=== PATIENT | male | born 1950 | race Hispanic/Latino ===

== ENCOUNTER 2016-05-30 16:28 | Inpatient (IN) | payer BC, MEDICARE ==
[2016-05-30 19:03] LABS: Urine Drugs of Abuse Note Disclamer
[2016-05-30 19:42] LABS: Bilirubin,Urine NEG (Negative); Blood,Urine MOD (Negative); Ketones,Urine NEG (Negative); Leukocyte Esterase,Urine NEG (Negative); Mucus,Urine 2+ /HPF; Nitrite,Urine NEG (Negative)
--- NOTE | 2016-05-30 19:48 | Emergency Department Report ---
ED Altered Mental Status HPI - General Chief Complaint: Headache Stated Complaint: ALTERED MENTAL STATUS Time Seen by Provider: 05/30/16 17:44 Source: patient, old records reviewed (no previous record) Mode of arrival: Stretcher Limitations: No Limitations - History of Present Illness Initial Comments: 65-year-old male with no past medical history presents to the hospital with altered mental status. Patient states he has been "sick times one week". By sickness patient means that he is having intermittent periods of confusion as per other people. 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 Apparently he was talking on the phone to another cdl flatbed truck driver about 1.5 hour prior to evaluation and he was not making sense. I spoke to this friend on the phone. Patient didn't know where he was and was incoherent at times. Patient does not recall this incident or conversation. Plans intermittent left-sided headache rated a 4/10 in intensity for last 2 weeks. No reports of nausea, vomiting, chest pain, shortness of breath, diarrhea, or abdominal pain. - Related Data Home Medications Medication Instructions Recorded Confirmed Last Taken No Known Home Medications [No 05/30/16 05/30/16 Unknown Reported Home Medications] Allergies Allergy/AdvReac Type Severity Reaction Status Date / Time No Known Allergies Allergy Unverified 05/30/16 17:31 ED Review of Systems ROS: Stated complaint: ALTERED MENTAL STATUS Other details as noted in HPI Comment: All other systems reviewed and negative Other: Constitutional: No fevers chills Eyes: No eye pain visual changes ENT: No ear pain or throat pain Neck: Denies pain Respiratory: Denies cough wheezing shortness of breath Cardiovascular: Denies chest pain, palpitations, syncope GI: Denies abdominal pain, nausea, vomiting, diarrhea : Denies dysuria, urinary frequency, or urgency Musculoskeletal: Denies back pain Skin: Denies rash, lesions, erythema Neurologic: Denies numbness, weakness Psychiatric: Denies suicidal ideation, hallucinations ED Past Medical Hx - Past Medical History Previous Medical History?: No - Surgical History Past Surgical History?: Yes Additional Surgical History: KNEE AND KIDNEY SURGERY - Social History Smoking Status: Never Smoker Substance Use Type: None - Medications Home Medications: Home Medications Medication Instructions Recorded Confirmed Last Taken Type No Known Home Medications [No 05/30/16 05/30/16 Unknown History Reported Home Medications] ED Physical Exam - General Limitations: No Limitations - Other Other exam information: General: No limitations, patient is alert in no acute distress Head exam: Atraumatic, normocephalic Eyes exam: Normal appearance, pupils equal reactive to light, extraocular movements intact ENT: Moist mucous membrane, normal oropharynx Neck exam: Normal inspection, full range of motion, no meningismus nontender Respiratory exam: Clear to auscultation bilateral, no wheezes, rales, crackles Cardiovascular: Normal rate and rhythm, normal heart sounds Abdomen: Soft, nondistended, and nontender, with normal bowel sounds, no rebound, or guarding Extremity: Full range of motion normal inspection no deformity Back: Normal Inspection, full range of motion, no tenderness Neurologic: Alert, oriented x3, cranial nerves intact, no motor or sensory deficit, finger nose finger function in tact Psychiatric: normal affect, normal mood Skin: Warm, dry, intact ED Course Vital Signs 05/30/16 05/30/16 17:32 19:00 Temperature 99.5 F Pulse Rate 91 H 90 Respiratory 18 20 Rate Blood Pressure 160/54 Blood Pressure 116/65 [Left] O2 Sat by Pulse 96 100 Oximetry - Reevaluation(s) Reevaluation #1: 05/30/16 22:45 Patient remains stable during ED stay he received 1 L normal saline and by mouth potassium - Consultations Consultation #1: 05/30/16 21:[address] Magaña inspector canned food reconditioning neurologist for tele neurology. Recommends admission to the hospital for the workup and evaluation. After CT review states that the ventricles look large and there is some thickening of the falx. Differential includes sinus venous thrombosis and hydrocephalus. Recommend MRI with and without contrast and MRV. - Lab Data Result diagrams: 05/30/16 19:10 05/30/16 19:10 Lab Results 05/30/16 05/30/16 05/30/16 Range/Units 18:51 18:51 19:10 WBC 14.8 H (4.5-11.0) K/mm3 RBC 4.68 (3.65-5.03) M/mm3 Hgb 13.9 (11.8-15.2) gm/dl Hct 41.5 (35.5-45.6) % MCV 89 (84-94) fl MCH 30 (28-32) pg MCHC 34 (32-34) % RDW 13.5 (13.2-15.2) % Plt Count 270 (140-440) K/mm3 Lymph % (Auto) 7.7 L (13.4-35.0) % [place] % (Auto) 7.9 H (0.0-7.3) % Eos % (Auto) 0.0 (0.0-4.3) % Baso % (Auto) 0.5 (0.0-1.8) % Lymph # 1.1 L (1.2-5.4) K/mm3 [place] # 1.2 H (0.0-0.8) K/mm3 Eos # 0.0 (0.0-0.4) K/mm3 Baso # 0.1 (0.0-0.1) K/mm3 Seg Neutrophils % 83.9 H (40.0-70.0) % Seg Neutrophils # 12.4 H (1.8-7.7) K/mm3 Sodium (137-145) mmol/L Potassium (3.6-5.0) mmol/L Chloride (98-107) mmol/L Carbon Dioxide (22-30) mmol/L Anion Gap mmol/L BUN (9-20) mg/dL Creatinine (0.8-1.5) mg/dL Estimated GFR ml/min BUN/Creatinine Ratio % Glucose (75-100) mg/dL Calcium (8.4-10.2) mg/dL Magnesium (1.7-2.3) mg/dL Total Bilirubin (0.1-1.2) mg/dL AST (5-40) units/L ALT (7-56) units/L Alkaline Phosphatase (35-129) units/L Ammonia (25-60) umol/L Total Protein (6.3-8.2) g/dL Albumin (3.9-5) g/dL Albumin/Globulin Ratio % TSH (0.270-4.200) mlU/mL Free T4 (0.76-1.46) ng/dL Urine Color [place] (Yellow) Urine Turbidity Clear (Clear) Urine pH 5.0 (5.0-7.0) Ur Specific [place] 1.029 (1.003-1.030) Urine Protein 100 mg/dl (Negative) mg/dL Urine Glucose (UA) Neg (Negative) mg/dL Urine Ketones Neg (Negative) mg/dL Urine Blood Mod (Negative) Urine Nitrite Neg (Negative) Urine Bilirubin Neg (Negative) Urine Urobilinogen 4.0 (<2.0) mg/dL Ur Leukocyte Esterase Neg (Negative) Urine WBC (Auto) 4.0 (0.0-6.0) /HPF Urine RBC (Auto) 25.0 (0.0-6.0) /HPF Urine Mucus 2+ /HPF Urine Opiates Screen Presumptive negative Urine Methadone Screen Presumptive negative Ur Barbiturates Screen Presumptive negative Ur Phencyclidine Scrn Presumptive negative Ur Amphetamines Screen Presumptive negative U Benzodiazepines Scrn Presumptive negative Urine Cocaine Screen Presumptive negative U Marijuana (THC) Screen Presumptive negative Drugs of Abuse Note Disclamer Plasma/Serum Alcohol (0-0.07) gm% 05/30/16 05/30/16 05/30/16 Range/Units 19:10 19:10 19:10 WBC (4.5-11.0) K/mm3 RBC (3.65-5.03) M/mm3 Hgb (11.8-15.2) gm/dl Hct (35.5-45.6) % MCV (84-94) fl MCH (28-32) pg MCHC (32-34) % RDW (13.2-15.2) % Plt Count (140-440) K/mm3 Lymph % (Auto) (13.4-35.0) % [place] % (Auto) (0.0-7.3) % Eos % (Auto) (0.0-4.3) % Baso % (Auto) (0.0-1.8) % Lymph # (1.2-5.4) K/mm3 [place] # (0.0-0.8) K/mm3 Eos # (0.0-0.4) K/mm3 Baso # (0.0-0.1) K/mm3 Seg Neutrophils % (40.0-70.0) % Seg Neutrophils # (1.8-7.7) K/mm3 Sodium 133 L (137-145) mmol/L Potassium 3.4 L (3.6-5.0) mmol/L Chloride 94.3 L (98-107) mmol/L Carbon Dioxide 22 (22-30) mmol/L Anion Gap 20 mmol/L BUN 14 (9-20) mg/dL Creatinine 1.0 (0.8-1.5) mg/dL Estimated GFR > 60 ml/min BUN/Creatinine Ratio 14.00 % Glucose 131 H (75-100) mg/dL Calcium 8.3 L (8.4-10.2) mg/dL Magnesium (1.7-2.3) mg/dL Total Bilirubin 1.1 (0.1-1.2) mg/dL AST 49 H (5-40) units/L ALT 72 H (7-56) units/L Alkaline Phosphatase 138 H (35-129) units/L Ammonia (25-60) umol/L Total Protein 7.2 (6.3-8.2) g/dL Albumin 3.4 L (3.9-5) g/dL Albumin/Globulin Ratio 0.9 % TSH 0.621 (0.270-4.200) mlU/mL Free T4 0.87 (0.76-1.46) ng/dL Urine Color (Yellow) Urine Turbidity (Clear) Urine pH (5.0-7.0) Ur Specific [place] (1.003-1.030) Urine Protein (Negative) mg/dL Urine Glucose (UA) (Negative) mg/dL Urine Ketones (Negative) mg/dL Urine Blood (Negative) Urine Nitrite (Negative) Urine Bilirubin (Negative) Urine Urobilinogen (<2.0) mg/dL Ur Leukocyte Esterase (Negative) Urine WBC (Auto) (0.0-6.0) /HPF Urine RBC (Auto) (0.0-6.0) /HPF Urine Mucus /HPF Urine Opiates Screen Urine Methadone Screen Ur Barbiturates Screen Ur Phencyclidine Scrn Ur Amphetamines Screen U Benzodiazepines Scrn Urine Cocaine Screen U Marijuana (THC) Screen Drugs of Abuse Note Plasma/Serum Alcohol < 0.01 (0-0.07) gm% 05/30/16 05/30/16 Range/Units 19:10 20:27 WBC (4.5-11.0) K/mm3 RBC (3.65-5.03) M/mm3 Hgb (11.8-15.2) gm/dl Hct (35.5-45.6) % MCV (84-94) fl MCH (28-32) pg MCHC (32-34) % RDW (13.2-15.2) % Plt Count (140-440) K/mm3 Lymph % (Auto) (13.4-35.0) % [place] % (Auto) (0.0-7.3) % Eos % (Auto) (0.0-4.3) % Baso % (Auto) (0.0-1.8) % Lymph # (1.2-5.4) K/mm3 [place] # (0.0-0.8) K/mm3 Eos # (0.0-0.4) K/mm3 Baso # (0.0-0.1) K/mm3 Seg Neutrophils % (40.0-70.0) % Seg Neutrophils # (1.8-7.7) K/mm3 Sodium (137-145) mmol/L Potassium (3.6-5.0) mmol/L Chloride (98-107) mmol/L Carbon Dioxide (22-30) mmol/L Anion Gap mmol/L BUN (9-20) mg/dL Creatinine (0.8-1.5) mg/dL Estimated GFR ml/min BUN/Creatinine Ratio % Glucose (75-100) mg/dL Calcium (8.4-10.2) mg/dL Magnesium 2.1 (1.7-2.3) mg/dL Total Bilirubin (0.1-1.2) mg/dL AST (5-40) units/L ALT (7-56) units/L Alkaline Phosphatase (35-129) units/L Ammonia 59.0 (25-60) umol/L Total Protein (6.3-8.2) g/dL Albumin (3.9-5) g/dL Albumin/Globulin Ratio % TSH (0.270-4.200) mlU/mL Free T4 (0.76-1.46) ng/dL Urine Color (Yellow) Urine Turbidity (Clear) Urine pH (5.0-7.0) Ur Specific [place] (1.003-1.030) Urine Protein (Negative) mg/dL Urine Glucose (UA) (Negative) mg/dL Urine Ketones (Negative) mg/dL Urine Blood (Negative) Urine Nitrite (Negative) Urine Bilirubin (Negative) Urine Urobilinogen (<2.0) mg/dL Ur Leukocyte Esterase (Negative) Urine WBC (Auto) (0.0-6.0) /HPF Urine RBC (Auto) (0.0-6.0) /HPF Urine Mucus /HPF Urine Opiates Screen Urine Methadone Screen Ur Barbiturates Screen Ur Phencyclidine Scrn Ur Amphetamines Screen U Benzodiazepines Scrn Urine Cocaine Screen U Marijuana (THC) Screen Drugs of Abuse Note Plasma/Serum Alcohol (0-0.07) gm% - EKG Data -: EKG Interpreted by Me (nsr 90, fusion complexes, inf infarct) When compared to previous EKG there are: previous EKG unavailable - Radiology Data Radiology results: report reviewed (CT head: No acute finding) - Medical Decision Making Plan to admit patient to hospital for further workup and evaluation of change in mental status. - Differential Diagnosis dementia, delerium, cva, tia, encephalopathy Critical Care Time: No Critical care attestation.: If time is entered above; I have spent that time in minutes in the direct care of this critically ill patient, excluding procedure time. ED Disposition Clinical Impression: Altered mental status, Hyponatremia, Hypokalemia, Hematuria Disposition: OP ADMITTED IP TO THIS HOSP Is pt being admited?: Yes Condition: Stable Time of Disposition: 21:31 (Dr Fernandes/hosp)
[2016-05-30 19:53] LABS: Alanine Aminotransferase 72 units/L (7-56); Albumin 3.4 g/dL (3.9-5); Albumin/Globulin Ratio 0.9 %; Alkaline Phosphatase 138 units/L (35-129); Anion Gap 20 mmol/L; Bilirubin,Total 1.1 mg/dL (0.1-1.2); Blood Urea Nitrogen 14 mg/dL (9-20); Calcium 8.3 mg/dL (8.4-10.2); Carbon Dioxide 22 mmol/L (22-30); Chloride 94.3 mmol/L (98-107); Glucose 131 mg/dL (75-100); Potassium 3.4 mmol/L (3.6-5.0); Sodium 133 mmol/L (137-145); Total Protein 7.2 g/dL (6.3-8.2)
[2016-05-30 20:06] LABS: Basophils % (Auto) 0.5 % (0.0-1.8); Hematocrit 41.5 % (35.5-45.6); Hemoglobin 13.9 gm/dl (11.8-15.2); Mean Corpuscular HGB Conc 34 % (32-34); Mean Corpuscular Hemoglobin 30 pg (28-32); Mean Corpuscular Volume 89 fl (84-94); Platelet Count 270 K/mm3 (140-440); Red Blood Count 4.68 M/mm3 (3.65-5.03); Red Cell Distribution Width 13.5 % (13.2-15.2); White Blood Count 14.8 K/mm3 (4.5-11.0)
--- NOTE | 2016-05-30 20:14 | Cat Scan Report ---
FINAL REPORT PROCEDURE: CT HEAD/BRAIN WO CON TECHNIQUE: Computerized tomography of the head was performed without contrast material. HISTORY: Altered Mental Status COMPARISON: No prior studies are available for comparison. FINDINGS: No CT evidence of intracranial mass, hemorrhage, acute territorial infarction, or hydrocephalus. The intracranial arteries are symmetric in density. Calvarium is intact. There is a trace amount of fluid in the left sphenoid sinus. Mastoids are aerated. IMPRESSION: No CT evidence of acute intracranial abnormality
[2016-05-30] MEDS ORDERED: K-DUR PO ONE (20:27)
[2016-05-30] MEDS ORDERED: NACL 0.9% 1000 ML 1,000 ML IV ONE (20:27)
--- NOTE | 2016-05-31 00:51 | History and Physical Report ---
History of Present Illness Date of examination: 05/31/16 Date of admission: 05/31/16 Chief complaint: Altered mental status History of present illness: This is a 65-year-old male with no past medical history presents to the hospital with altered mental status. 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 Apparently he was talking on the phone to his friend (another bobbin trucker) prior to evaluation and he was not making sense for his friend. The friend called the EMS and patient was brought to the ER. Patient didn't know where he was and was incoherent at times. Patient does not recall this incident or conversation with his friend. Plans intermittent left-sided headache rated a 4/10 in intensity for last 2 weeks. No reports of nausea, vomiting, chest pain, shortness of breath, diarrhea, or abdominal pain. Neurology recommended to admit this patient for possible stroke versus seizure workup. His UDS was negative and serum alcohol level was normal. 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 Family History: Unknown Review of System: Constitutional: no fever, no chills, no weight loss Ears, eyes, nose, mouth and throat: no nasal congestion, no nasal discharge, no sinus pressure, no vision change, no red eye. Neck: No neck pain or rigidity. Cardiovascular: No chest pain, no orthopnea, no palpitations, no leg swelling Respiratory: No shortness of breath, no cough, no congestion, no wheezing Gastrointestinal: no abdominal pain, no nausea, no vomiting Genitourinary : no dysuria, no hematuria Musculoskeletal: no joint swelling or muscle ache Integumentary: no rash, no pruritis Neurological: no parathesias, no numbness, no tingling Endocrine: no cold or heat intolerance, no polyuria or polydipsia Hematologic/Lymphatic: no easy bruising, no easy bleeding, no gland swelling Allergic/Immunologic: no urticaria, no angioedema. Medications and Allergies Allergies Allergy/AdvReac Type Severity Reaction Status Date / Time No Known Allergies Allergy Unverified 05/30/16 17:31 Home Medications Medication Instructions Recorded Confirmed Last Taken Type No Known Home Medications [No 05/30/16 05/30/16 Unknown History Reported Home Medications] Exam - Physical Exam Narrative exam: GENERAL: This is well-developed well-nourished white male lying on bed appeared to be in no discomfort. HEENT: Normocephalic. Atraumatic. Extraocular motions are intact. No conjunctival congestion or icterus. Patient has moist mucous membranes. External auditory canal and nares patent bilaterally. NECK: Supple. Trachea midline. No JVD, thyromagaly or lymphadenopathy. CHEST/LUNGS: Clear to auscultated bilaterally. There is no respiratory distress noted, breathing nonlabored. No wheezes crackles or rhonchi. HEART/CARDIOVASCULAR: Regular in rate and rhythm. PMI at the apex. There is no gallop rub or murmur. ABDOMEN: Abdomen is soft, nontender. Patient has normal bowel sounds. There is no abdominal distention. No organomagaly or rigidity. SKIN: There is no rash, no erythrema. There is no diaphoresis. Warm and dry. NEUROLOGY: The patient is awake, alert, and oriented to person and place only. The patient is cooperative. The patient has normal speech. No focal motor deficit. MUSCULOSKELETAL: No joint effusion or tenderness. Muscle strength equal bilaterally. No muscle wasting. EXTRIMITY: No edema, cyanosis or clubbing. PSYCH: No depression or anxiety noted. Cooperative. - Constitutional Vitals: Temp Pulse Resp BP Pulse Ox 99.5 F 90 20 116/65 100 05/30/16 17:32 05/30/16 19:00 05/30/16 19:00 05/30/16 19:00 05/30/16 19:00 Results - Labs CBC & Chem 7: 05/30/16 19:10 05/30/16 19:10 Labs: Laboratory Last Values WBC 14.8 K/mm3 (4.5-11.0) H 05/30/16 19:10 RBC 4.68 M/mm3 (3.65-5.03) 05/30/16 19:10 Hgb 13.9 gm/dl (11.8-15.2) 05/30/16 19:10 Hct 41.5 % (35.5-45.6) 05/30/16 19:10 MCV 89 fl (84-94) 05/30/16 19:10 MCH 30 pg (28-32) 05/30/16 19:10 MCHC 34 % (32-34) 05/30/16 19:10 RDW 13.5 % (13.2-15.2) 05/30/16 19:10 Plt Count 270 K/mm3 (140-440) 05/30/16 19:10 Lymph % (Auto) 7.7 % (13.4-35.0) L 05/30/16 19:10 [place] % (Auto) 7.9 % (0.0-7.3) H 05/30/16 19:10 Eos % (Auto) 0.0 % (0.0-4.3) 05/30/16 19:10 Baso % (Auto) 0.5 % (0.0-1.8) 05/30/16 19:10 Lymph # 1.1 K/mm3 (1.2-5.4) L 05/30/16 19:10 [place] # 1.2 K/mm3 (0.0-0.8) H 05/30/16 19:10 Eos # 0.0 K/mm3 (0.0-0.4) 05/30/16 19:10 Baso # 0.1 K/mm3 (0.0-0.1) 05/30/16 19:10 Seg Neutrophils % 83.9 % (40.0-70.0) H 05/30/16 19:10 Seg Neutrophils # 12.4 K/mm3 (1.8-7.7) H 05/30/16 19:10 Sodium 133 mmol/L (137-145) L 05/30/16 19:10 Potassium 3.4 mmol/L (3.6-5.0) L 05/30/16 19:10 Chloride 94.3 mmol/L (98-107) L 05/30/16 19:10 Carbon Dioxide 22 mmol/L (22-30) 05/30/16 19:10 Anion Gap 20 mmol/L 05/30/16 19:10 BUN 14 mg/dL (9-20) 05/30/16 19:10 Creatinine 1.0 mg/dL (0.8-1.5) 05/30/16 19:10 Estimated GFR > 60 ml/min 05/30/16 19:10 BUN/Creatinine Ratio 14.00 % 05/30/16 19:10 Glucose 131 mg/dL (75-100) H 05/30/16 19:10 Calcium 8.3 mg/dL (8.4-10.2) L 05/30/16 19:10 Magnesium 2.1 mg/dL (1.7-2.3) 05/30/16 19:10 Total Bilirubin 1.1 mg/dL (0.1-1.2) 05/30/16 19:10 AST 49 units/L (5-40) H 05/30/16 19:10 ALT 72 units/L (7-56) H 05/30/16 19:10 Alkaline Phosphatase 138 units/L (35-129) H 05/30/16 19:10 Ammonia 59.0 umol/L (25-60) 05/30/16 20:27 Total Protein 7.2 g/dL (6.3-8.2) 05/30/16 19:10 Albumin 3.4 g/dL (3.9-5) L 05/30/16 19:10 Albumin/Globulin Ratio 0.9 % 05/30/16 19:10 TSH 0.621 mlU/mL (0.270-4.200) 05/30/16 19:10 Free T4 0.87 ng/dL (0.76-1.46) 05/30/16 19:10 Urine Color [place] (Yellow) 05/30/16 18:51 Urine Turbidity Clear (Clear) 05/30/16 18:51 Urine pH 5.0 (5.0-7.0) 05/30/16 18:51 Ur Specific [place] 1.029 (1.003-1.030) 05/30/16 18:51 Urine Protein 100 mg/dl mg/dL (Negative) 05/30/16 18:51 Urine Glucose (UA) Neg mg/dL (Negative) 05/30/16 18:51 Urine Ketones Neg mg/dL (Negative) 05/30/16 18:51 Urine Blood Mod (Negative) 05/30/16 18:51 Urine Nitrite Neg (Negative) 05/30/16 18:51 Urine Bilirubin Neg (Negative) 05/30/16 18:51 Urine Urobilinogen 4.0 mg/dL (<2.0) 05/30/16 18:51 Ur Leukocyte Esterase Neg (Negative) 05/30/16 18:51 Urine WBC (Auto) 4.0 /HPF (0.0-6.0) 05/30/16 18:51 Urine RBC (Auto) 25.0 /HPF (0.0-6.0) 05/30/16 18:51 Urine Mucus 2+ /HPF 05/30/16 18:51 Urine Opiates Screen Presumptive negative 05/30/16 18:51 Urine Methadone Screen Presumptive negative 05/30/16 18:51 Ur Barbiturates Screen Presumptive negative 05/30/16 18:51 Ur Phencyclidine Scrn Presumptive negative 05/30/16 18:51 Ur Amphetamines Screen Presumptive negative 05/30/16 18:51 U Benzodiazepines Scrn Presumptive negative 05/30/16 18:51 Urine Cocaine Screen Presumptive negative 05/30/16 18:51 U Marijuana (THC) Screen Presumptive negative 05/30/16 18:51 Drugs of Abuse Note Disclamer 05/30/16 18:51 Plasma/Serum Alcohol < 0.01 gm% (0-0.07) 05/30/16 19:10 - Imaging and Cardiology CT scan - chest: report reviewed (no acute intracranial abnormality) Assessment and Plan Assessment and plan: Acute encephalopathy, unknown etiology Mild hyponatremia Mild hypokalemia Leukocytosis, likely stress induced rule out underlying infection Elevated LFTs Plan: Admit to medicine obtain MRI, MRA and MRV, EEG par neurology recommendation Place on aspirin and statin Obtained blood culture, chest x-ray place on empiric antibiotic for now, DC antibiotic if cultures negative GI and DVT prophylaxis Monitor hepatic function, get hepatitis panel Also obtain B12 level Serum TSH and T4 level normal Advance Directives: Yes VTE prophylaxis?: Chemical Plan of care discussed with patient/family: Yes
[2016-05-31] MEDS ORDERED: D50W (25GM) IV PRN (01:12)
[2016-05-31] MEDS ORDERED: ZOFRAN IV PRN (01:12)
[2016-05-31] MEDS ORDERED: MILK OF MAGNESIA PO PRN (01:12)
[2016-05-31] MEDS ORDERED: PHENERGAN PR PRN (01:12)
[2016-05-31] MEDS ORDERED: TYLENOL PO PRN (01:12)
[2016-05-31] MEDS ORDERED: DULCOLAX PR PRN (01:12)
[2016-05-31] MEDS ORDERED: NORCO 5/325 PO PRN (01:12)
[2016-05-31] MEDS ORDERED: AMBIEN PO PRN (01:12)
[2016-05-31] MEDS ORDERED: REGLAN PO PRN (01:12)
[2016-05-31] MEDS ORDERED: SODIUM CHLORIDE FLUSH SYRINGE 10 ML IV PRN (01:12)
[2016-05-31] MEDS ORDERED: NACL 0.9% 1000 ML 1,000 ML IV SCH (02:00)
--- NOTE | 2016-05-31 10:00 | XRay Report ---
AP CHEST :05/31/16 CLINICAL: Aspiration. COMPARISON:None. FINDINGS: A partial consolidation of the right upper lobe. The lungs are otherwise clear . Normal heart. Mild central vascular congestion. No tubes or lines. IMPRESSION: Right upper lobe pneumonia with partial consolidation.
[2016-05-31] MEDS: COLACE PO SCH ×2 (10:09→22:37)
[2016-05-31] MEDS: PEPCID PO SCH ×2 (10:09→22:38)
[2016-05-31] MEDS: ASPIRIN PO SCH (10:09)
[2016-05-31] MEDS: LEVAQUIN PO SCH (10:09)
[2016-05-31] MEDS: LOVENOX SUB-Q SCH (10:09)
--- NOTE | 2016-05-31 10:50 | Event Note ---
Date: 05/31/16 Patient seen and examined. This is a follow-up of an admission earlier this morning. Continue plan as outlined in H&P.
--- NOTE | 2016-05-31 11:17 | Magnetic Resonance Report ---
MRI BRAIN WITHOUT CONTRAST: 05/31/16 01:12:00 CLINICAL: Stroke. TECHNIQUE: Axial diffusion, T1, T2, FLAIR, gradient echo T2*, and sagittal T1 sequences on a 1.5 Aarti magnet. FINDINGS: The vessels and sulci are slightly prominent for age.. No restricted diffusion. A few scattered bilateral subcortical white matter focal hyperintensities on FLAIR and T2. No mass or mass effect. No hemorrhage, edema or extra-axial collection. Normal pituitary and optic chiasm. The brainstem and cerebellum are normal. Intact vascular flow voids. Normal sinuses. The orbits, and soft tissues are normal. Normal calvarium and skull base. IMPRESSION: No evidence of acute/subacute infarct or hemorrhage. Mild cortical atrophy and mild nonspecific white matter hyperintensities.
--- NOTE | 2016-05-31 11:18 | Magnetic Resonance Report ---
MRA HEAD WITHOUT CONTRAST: 05/31/16 01:12:00 CLINICAL: Stroke. TECHNIQUE: Axial 3-D [id number] MR angiography of the [place] of [place] with review of axial source images. FINDINGS: Intact [place] of [place] with no aneurysm, stenosis or occlusion. Symmetric blood flow in the anterior, middle and posterior cerebral arteries. Normal basilar and vertebral arteries. IMPRESSION: Normal study.
[2016-05-31] MEDS ORDERED: FLUARIX QUAD 2016-2017(36 MOS+) IM ONE (12:00)
[2016-05-31] MEDS ORDERED: PNEUMOVAX 23 IM ONE (12:00)
--- NOTE | 2016-06-01 01:14 | Admit Criteria Form ---
Admission Criteria Documentation: NEUROLOGY GRG Clinical Indications for Admission to Inpatient Care (Place ' X' for any and all applicable criteria): Hospital admission is needed for appropriate care of the patient because of ANY ONE of the following: [ X]I. New-onset or worsening altered mental status remaining after emergency or observation level care (as appropriate) (9)(10)(11) [ ]II. Severe [employer] infections or inflammatory conditions, including ANY ONE of the following(1)(2)(3): [ ]a) Intracranial abscess [ ]b) Spinal abscess or myelitis [ ]c) Tuberculous or other nonbacterial, nonviral [employer] infection(8) [ ]III. Encephalitis(1)(2)(3) [ ]IV. Status epilepticus or repetitive seizures not controlled with emergent treatment [A] (7)(8) [ ]V. Transient alteration in consciousness with high-risk etiology; examples include (12)(13): [ ]a) Cardiovascular source [ ]b) Cataplexy [ ]. Cerebral aneurysm requiring ANY ONE of the following(14): [ ]a) IV antihypertensives or vasoactive agents [ ]b) Sedation and analgesia for suspected leak [ ]c) Need for external ventricular drainage and cerebral perfusion pressure monitoring [ ]d) Emergent evaluation to determine need for surgical clipping or endovascular coiling by interventional radiology. If surgery is required ( Also use Craniotomy, Supratentorial, for Surgery of Bleeding Intracranial Aneurysm (for bleeding aneurysm) or Craniotomy, Supratentorial (for nonbleeding aneurysm) as appropriate. [ ]VII. Altered mental status that is severe or persistent(16) [ ]VIII New-onset severe neurologic findings requiring inpatient care; examples include: [ ]a) Papilledema [ ]b) Cerebral edema [ ]c) Mass effect on imaging [ ]IX. New-onset severe neurologic symptom requiring inpatient care indicated by ANY ONE of the following: [ ]a) Aphasia(15) [ ]b) Weakness (grade 3 or less) [ ]c) Paralysis (eg, hemiplegia) [ ]d) Spasticity(16) [ ]e) Ataxia(17) [ ]f) Amnesia(18) [ ]g) Involuntary movements(19) [ ]h) Vertigo [ ]i) Other severe neurologic symptom not treatable at alternative level of care (eg, observation care) [ ]X. Guillain-[place] syndrome(20) [ ]XI. Myasthenia gravis crisis or inpatient monitoring need as indicated by ANY ONE of the following(21): [ ]a) Inadequate airway protection [ ]b) Respiratory insufficiency requiring intubation or inpatient. monitoring [ ]c) Progressive dysphagia with failure to thrive [ ]d) Intensive treatment (eg, course of plasmapheresis) with inadequate outpatient situation to monitor patients status [ ]XII. Multiple sclerosis or other acute demyelinating disease requiring inpatient care as indicated by ANY ONE of the following (22)(23): [ ]a) Acute severe deterioration requiring inpatient treatment (eg, IV steroids, plasmapheresis, close observation) [ ]b) Acute complication requiring inpatient care (eg, sepsis, severe decubitus, aspiration) [ ]XIII. Intracranial hypertension (eg, pseudotumor cerebri) requiring inpatient care (eg, acute visual loss, inadequate oral intake) (24) [ ]XIV.Parkinson disease requiring inpatient care (Also use Optimal Recovery Care Criteria or General Recovery Criteria as appropriate) indicated by ANY ONE of the following(25): [ ]a) Infection (eg, aspiration pneumonia) not treatable at alternative level of care [ ]b) Volume depletion not responsive to emergency and observation care treatment (as appropriate) [ ]c) Life-threatening agitation or psychotic behavior not treatable on emergency, observation care, or alternative level (eg, residential) basis [ ]d) Severe medication withdrawal effects (eg, freezing, neuroleptic malignant syndrome) not responsive to emergency and observation care treatment (as appropriate) [ ]e) Other severe manifestation not treatable at alternative level of care [ ]XV.Amyotrophic lateral sclerosis with inpatient care needs as indicated by ANY ONE of the following(26): [ ]a) Acute complications requiring inpatient care (Use Optimal Recovery Care Criteria or General Recovery Criteria as appropriate); examples include: [ ]i) Aspiration pneumonia [ ]ii) Sepsis [ ]b) Dehydration or hypovolemia (not responsive to emergency and observation care treatment as appropriate) AND artificial support desired [ ]c) Inadequate airway protection AND artificial support desired [ ]d) Severe ventilatory insufficiency AND artificial support desired [ ]XVI.Severe myopathy, neuropathy, or other neuromuscular disease as indicated by ANY ONE of the following: [ ]a) New-onset severe diffuse weakness (eg, strength 3/5 or less) [ ]b) Severe dysphagia [ ]c) Dyspnea at rest or with minimal exertion (new) [ ]d) Inadequate airway protection [ ]e) Inadequate ventilation as indicated by ANY ONE of the following : [ ]i) Partial pressure of carbon dioxide greater than 44 mm Hg (5.9 kPa) (new) [ ]ii) Reduced peak expiratory flow rate (new) [ ]iii) Vital capacity less than 50% of predicted ( less than 15 mL/kg) [ ]iv) Peak inspiratory force less negative than -30 cm H20 (-2942 Pa) [ ]XVII.Complications of congenital or degenerative disease (eg, infection, seizures, dehydration, injury) not responsive to emergency and observation care treatment (as appropriate ) [C](16)(29)(30) [ ]XVIII.Suspected or confirmed nerve or muscle toxic injury, including ANY ONE of the following: [ ]a) Rhabdomyolysis(31) [ ]b) Botulism(32) [ ]c) Other severe toxin-induced sign or symptom [ ]XIX. Neurologic trauma requiring inpatient treatment (medical) indicated by ANY ONE of the following(33)(34): [ ]a) Vital signs or neurologic signs more frequently than every 4 hours [ ]b) Hyperosmolar therapy [ ]c) Respiratory monitoring [ ]d) Intracranial pressure monitoring and treatment [ ]e) Stabilization and immobilization device placement (eg, braces, body jacket) [ ]f) Intubation & mechanical ventilation for airway protection or therapeutic hyperventilation [ ]g) Other treatment or monitoring needed that requires inpatient level of care [ ]XX.Complications of neurologic devices (eg, ventricular shunt, neurostimulator) requiring ANY ONE of the following(35)(36): [ ]a) IV antibiotics with monitoring while awaiting culture results [ ]b) Monitoring for hydrocephalus [ ]XXI Vasculitis with ANY ONE of the following(4)(5): [ ]a) Altered mental status [ ]b) Psychosis [ ]c) Seizures [ ]XXII. Neurology condition and ALL of the following: [ ]a) Symptom or finding for which emergency and observation care have failed or are not considered appropriate (Use General Criteria: Observation Care as appropriate) [ ]b) Presence of ANY ONE of the following: [ ]i) A General Admission Criteria [ ]ii A Pediatric General Admission Criteria The original [facility] content created by Lo Kelley has been revised. The portions of the content which have been revised are identified through the use of italic text or in bold, and [facility] has neither reviewed nor approved the modified material. All other unmodified content is copyright [facility] Please see references footnoted in the original [facility] edition 2016 Admission Criteria Met: Yes
[2016-06-01 08:30] LABS: Anion Gap 17 mmol/L; BUN/Creatinine Ratio 15.55; Blood Urea Nitrogen 14 mg/dL (9-20); Calcium 7.7 mg/dL (8.4-10.2); Carbon Dioxide 23 mmol/L (22-30); Chloride 101.6 mmol/L (98-107); Cholesterol 104 mg/dL (50-199); Glucose 98 mg/dL (75-100); HDL Cholesterol 15 mg/dL (40-59); LDL Cholesterol,Direct 67 mg/dL (50-130); Potassium 4.2 mmol/L (3.6-5.0); Sodium 137 mmol/L (137-145); Triglycerides 110 mg/dL (2-149)
[2016-06-01 08:31] LABS: Basophils % (Auto) 0.6 % (0.0-1.8); Eosinophils % (Auto) 2.8 % (0.0-4.3); Hemoglobin 13.1 gm/dl (11.8-15.2); Mean Corpuscular HGB Conc 34 % (32-34); Mean Corpuscular Hemoglobin 30 pg (28-32); Mean Corpuscular Volume 89 fl (84-94); Platelet Count 227 K/mm3 (140-440); Red Blood Count 4.37 M/mm3 (3.65-5.03); Red Cell Distribution Width 13.3 % (13.2-15.2); White Blood Count 10.6 K/mm3 (4.5-11.0)
--- NOTE | 2016-06-01 10:58 | Progress Note ---
Assessment and Plan Assessment and plan: 1. Acute encephalopathy. Etiology is unknown. Resolved. ? Seizure disorder. Await EEG. 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 Await neurology evaluation. 2. Hyponatremia. Resolved. 3. Hypokalemia. Potassium repleted. 4. Transient global amnesia. ?CVA. However, CT and MRI are negative. Check carotid ultrasound. 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 Patient denies any chest pain or shortness of breath. Hospitalist Physical - Constitutional Vitals: Temp Pulse Resp BP Pulse Ox 98.3 F 92 H 20 107/57 92 06/01/16 08:45 06/01/16 08:45 06/01/16 08:45 06/01/16 08:45 06/01/16 08:45 General appearance: Present: no acute distress, well-nourished - EENT Eyes: Present: PERRL, EOM intact ENT: hearing intact, clear oral mucosa, dentition normal - Neck Neck: Present: supple, normal ROM - Respiratory Respiratory effort: normal Respiratory: bilateral: CTA - Cardiovascular Rhythm: regular Heart Sounds: Present: S1 & S2. Absent: gallop, rub - Extremities Extremities: no ischemia, No edema, Full ROM - Abdominal General gastrointestinal: soft, non-tender, non-distended, normal bowel sounds - Integumentary Integumentary: Present: clear, warm, dry - Neurologic Neurologic: CNII-XII intact, moves all extremities Results - Labs CBC & Chem 7: 06/01/16 07:27 06/01/16 07:27 Labs: Laboratory Last Values WBC 10.6 K/mm3 (4.5-11.0) 06/01/16 07:27 RBC 4.37 M/mm3 (3.65-5.03) 06/01/16 07:27 Hgb 13.1 gm/dl (11.8-15.2) 06/01/16 07:27 Hct 39.0 % (35.5-45.6) 06/01/16 07:27 MCV 89 fl (84-94) 06/01/16 07:27 MCH 30 pg (28-32) 06/01/16 07:27 MCHC 34 % (32-34) 06/01/16 07:27 RDW 13.3 % (13.2-15.2) 06/01/16 07:27 Plt Count 227 K/mm3 (140-440) 06/01/16 07:27 Lymph % (Auto) 9.8 % (13.4-35.0) L 06/01/16 07:27 Gaines % (Auto) 10.6 % (0.0-7.3) H 06/01/16 07:27 Eos % (Auto) 2.8 % (0.0-4.3) 06/01/16 07:27 Baso % (Auto) 0.6 % (0.0-1.8) 06/01/16 07:27 Lymph # 1.0 K/mm3 (1.2-5.4) L 06/01/16 07:27 Gaines # 1.1 K/mm3 (0.0-0.8) H 06/01/16 07:27 Eos # 0.3 K/mm3 (0.0-0.4) 06/01/16 07:27 Baso # 0.1 K/mm3 (0.0-0.1) 06/01/16 07:27 Seg Neutrophils % 76.2 % (40.0-70.0) H 06/01/16 07:27 Seg Neutrophils # 8.1 K/mm3 (1.8-7.7) H 06/01/16 07:27 Sodium 137 mmol/L (137-145) 06/01/16 07:27 Potassium 4.2 mmol/L (3.6-5.0) D 06/01/16 07:27 Chloride 101.6 mmol/L (98-107) 06/01/16 07:27 Carbon Dioxide 23 mmol/L (22-30) 06/01/16 07:27 Anion Gap 17 mmol/L 06/01/16 07:27 BUN 14 mg/dL (9-20) 06/01/16 07:27 Creatinine 0.9 mg/dL (0.8-1.5) 06/01/16 07:27 Estimated GFR > 60 ml/min 06/01/16 07:27 BUN/Creatinine Ratio 15.55 % 06/01/16 07:27 Glucose 98 mg/dL (75-100) 06/01/16 07:27 POC Glucose 106 (70-105) H 06/01/16 06:29 Hemoglobin A1c 6.5 % (4-6) H 05/31/16 01:30 Calcium 7.7 mg/dL (8.4-10.2) L 06/01/16 07:27 Magnesium 2.1 mg/dL (1.7-2.3) 05/30/16 19:10 Total Bilirubin 1.1 mg/dL (0.1-1.2) 05/30/16 19:10 AST 49 units/L (5-40) H 05/30/16 19:10 ALT 72 units/L (7-56) H 05/30/16 19:10 Alkaline Phosphatase 138 units/L (35-129) H 05/30/16 19:10 Ammonia 59.0 umol/L (25-60) 05/30/16 20:27 Troponin T < 0.010 ng/mL (0.00-0.029) 05/31/16 01:30 Total Protein 7.2 g/dL (6.3-8.2) 05/30/16 19:10 Albumin 3.4 g/dL (3.9-5) L 05/30/16 19:10 Albumin/Globulin Ratio 0.9 % 05/30/16 19:10 Triglycerides 110 mg/dL (2-149) 06/01/16 07:27 Cholesterol 104 mg/dL (50-199) 06/01/16 07:27 LDL Cholesterol Direct 67 mg/dL (50-130) 06/01/16 07:27 HDL Cholesterol 15 mg/dL (40-59) L 06/01/16 07:27 Cholesterol/HDL Ratio 6.93 % 06/01/16 07:27 Vitamin B12 271.3 pg/mL (211-911) 05/31/16 01:40 TSH 0.621 mlU/mL (0.270-4.200) 05/30/16 19:10 Free T4 0.87 ng/dL (0.76-1.46) 05/30/16 19:10 Urine Color Leslie (Yellow) 05/30/16 18:51 Urine Turbidity Clear (Clear) 05/30/16 18:51 Urine pH 5.0 (5.0-7.0) 05/30/16 18:51 Ur Specific [place] 1.029 (1.003-1.030) 05/30/16 18:51 Urine Protein 100 mg/dl mg/dL (Negative) 05/30/16 18:51 Urine Glucose (UA) Neg mg/dL (Negative) 05/30/16 18:51 Urine Ketones Neg mg/dL (Negative) 05/30/16 18:51 Urine Blood Mod (Negative) 05/30/16 18:51 Urine Nitrite Neg (Negative) 05/30/16 18:51 Urine Bilirubin Neg (Negative) 05/30/16 18:51 Urine Urobilinogen 4.0 mg/dL (<2.0) 05/30/16 18:51 Ur Leukocyte Esterase Neg (Negative) 05/30/16 18:51 Urine WBC (Auto) 4.0 /HPF (0.0-6.0) 05/30/16 18:51 Urine RBC (Auto) 25.0 /HPF (0.0-6.0) 05/30/16 18:51 Urine Mucus 2+ /HPF 05/30/16 18:51 Urine Opiates Screen Presumptive negative 05/30/16 18:51 Urine Methadone Screen Presumptive negative 05/30/16 18:51 Ur Barbiturates Screen Presumptive negative 05/30/16 18:51 Ur Phencyclidine Scrn Presumptive negative 05/30/16 18:51 Ur Amphetamines Screen Presumptive negative 05/30/16 18:51 U Benzodiazepines Scrn Presumptive negative 05/30/16 18:51 Urine Cocaine Screen Presumptive negative 05/30/16 18:51 U Marijuana (THC) Screen Presumptive negative 05/30/16 18:51 Drugs of Abuse Note Disclamer 05/30/16 18:51 Plasma/Serum Alcohol < 0.01 gm% (0-0.07) 05/30/16 19:10 Hepatitis A IgM Ab Non-reactive (NonReactive) 05/31/16 01:40 Hep Bs Antigen Non-reactive (Negative) 05/31/16 01:40 Hep B Core IgM Ab Non-reactive (NonReactive) 05/31/16 01:40 Hepatitis C Antibody Non-reactive (NonReactive) 05/31/16 01:40
[2016-06-01] MEDS: LOVENOX SUB-Q SCH (11:01)
[2016-06-01] MEDS: LEVAQUIN PO SCH (11:01)
[2016-06-01] MEDS: PEPCID PO SCH ×2 (11:01→21:31)
[2016-06-01] MEDS: ASPIRIN PO SCH (11:02)
[2016-06-01] MEDS: COLACE PO SCH ×2 (11:02→21:31)
[2016-06-02 05:58] LABS: Basophils % (Auto) 0.6 % (0.0-1.8); Eosinophils % (Auto) 3.7 % (0.0-4.3); Hematocrit 40.4 % (35.5-45.6); Hemoglobin 13.4 gm/dl (11.8-15.2); Mean Corpuscular HGB Conc 33 % (32-34); Mean Corpuscular Hemoglobin 30 pg (28-32); Mean Corpuscular Volume 90 fl (84-94); Platelet Count 276 K/mm3 (140-440); Red Blood Count 4.48 M/mm3 (3.65-5.03); Red Cell Distribution Width 13.5 % (13.2-15.2); White Blood Count 10.8 K/mm3 (4.5-11.0)
[2016-06-02 06:03] LABS: Anion Gap 18 mmol/L; Blood Urea Nitrogen 14 mg/dL (9-20); Calcium 8.3 mg/dL (8.4-10.2); Carbon Dioxide 24 mmol/L (22-30); Chloride 99.7 mmol/L (98-107); Glucose 105 mg/dL (75-100); Potassium 4.1 mmol/L (3.6-5.0); Sodium 138 mmol/L (137-145)
--- NOTE | 2016-06-02 08:12 | Discharge Summary ---
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 Apparently he was talking on the phone to his friend (another tractor trailer truck driver) prior to evaluation and he was not making sense according to his friend. The friend called the EMS and patient was brought to the ER. Patient didn't know where he was and was incoherent at times. Patient does not recall this incident or conversation with his friend. He only complained of intermittent left-sided headache rated a 4/10 in intensity for last 2 weeks. No reports of nausea, vomiting, chest pain, shortness of breath, diarrhea, or abdominal pain. Neurology recommended to admit this patient for possible stroke versus seizure workup. His UDS was negative and serum alcohol level was normal. Patient was evaluated with carotid ultrasound, CT scan, MRI and MRA which were all negative. Patient had no seizure activity during hospital stay. Echocardiogram and EEG are pending. Once the studies are completed patient will be discharged from follow-up with results as an outpatient. Patient is to have stroke with no driving until cleared by neurology and primary care physician and EEG evaluated. The instructions of no driving were told to the patient and he forced understanding. Dedicated discharge time 35 minutes. Disposition: DISCHARGED TO HOME OR SELFCARE - Discharge Diagnoses (1) Encephalopathy acute Status: Acute (2) Transient global amnesia Status: Acute Core Measure Documentation - Palliative Care Palliative Care/ Comfort Measures: Not Applicable - Core Measures Any of the following diagnoses?: none Exam - Constitutional Vitals: Temp Pulse Resp BP Pulse Ox 98.9 F 72 20 140/70 92 06/02/16 04:00 06/02/16 04:00 06/02/16 04:00 06/02/16 04:00 06/02/16 04:00 General appearance: Present: no acute distress, well-nourished - EENT Eyes: Present: PERRL ENT: hearing intact, clear oral mucosa - Neck Neck: Present: supple, normal ROM - Respiratory Respiratory effort: normal Respiratory: bilateral: CTA - Cardiovascular Heart Sounds: Present: S1 & S2. Absent: rub, click - Extremities Extremities: pulses symmetrical, No edema Peripheral Pulses: within normal limits - Abdominal General gastrointestinal: Present: soft, non-tender, non-distended, normal bowel sounds Male genitourinary: Present: normal - Integumentary Integumentary: Present: clear, warm, dry - Musculoskeletal Musculoskeletal: gait normal, strength equal bilaterally - Psychiatric Psychiatric: appropriate mood/affect, intact judgment & insight - Neurologic Neurologic: CNII-XII intact, moves all extremities Plan Activity: no driving until cleared by PCP Weight Bearing Status: Full Weight Bearing Diet: regular Follow up with: PRIMARY CARE, [Primary Care Provider] - 3-5 Days [facility] POPE MD [Staff Physician] - 7 Days Prescriptions: Aspirin [Aspirin TAB] 325 mg PO QDAY #30 tablet Simvastatin [Zocor TAB] 20 mg PO QHS #30 tablet
[2016-06-02] MEDS: LOVENOX SUB-Q SCH (12:10)
[2016-06-02] MEDS: ASPIRIN PO SCH (12:10)
[2016-06-02] MEDS: COLACE PO SCH (12:11)
[2016-06-02] MEDS: PEPCID PO SCH (12:11)
[2016-06-02] MEDS: LEVAQUIN PO SCH (12:11)
[2016-06-02 17:28] VITALS: BP 140/72
--- NOTE | 2016-06-02 19:07 | Echocardiography Report ---
REASON FOR STUDY: Acute stroke. INTERPRETATION: The aortic root appears normal in size. LEFT ATRIUM: Appears normal in size. No thrombus is identified. RIGHT ATRIUM: Appears normal in size. No thrombus is identified. MITRAL VALVE: Appears mildly thickened. The valve appears to function normally with no stenosis or regurgitation. TRISCUSPID VALVE: Although the tricuspid valve is not adequately visualized, the valve appears to function normally. AORTIC VALVE: The aortic valve is trileaflet and appears mildly thickened. No valvular stenosis. Mild aortic regurgitation is present. PULMONIC VALVE: The pulmonic valve is not adequately visualized. There is trace pulmonic regurgitation. LEFT VENTRICLE: The left ventricular cavity appears normal in size with mild left ventricular hypertrophy. Global left ventricular systolic function appears mildly reduced. The estimated left ventricular ejection fraction is 45-50%. There is mild global left ventricular hypokinesis. There is grade 1 left ventricular diastolic dysfunction (impaired relaxation). RIGHT VENTRICULE: Right ventricular size on systolic function appears normal. There is no pericardial effusion. No intracardiac thrombosis is identified by the study. SUMMARY: No intracardiac thrombus is identified. There is mild aortic regurgitation. The left ventricular cavity appears normal in size with mild left ventricular hypertrophy. Global left ventricular systolic function appears mildly reduced. EF 45-50%. Grade 1 diastolic LV dysfunction. Normal right ventricular size and systolic function. JOB# [id number] GEORGE/DENISE DHALIWAL
[2016-06-02] MEDS ORDERED: ZOCOR PO SCH (22:00)
--- NOTE | 2016-06-06 08:12 | Vascular Lab Report ---
CAROTID DUPLEX STUDY: RIGHT PSVEDV CCA PROX:[id number] CCA DIST:[id number] ICA PROX:8720 ICA MID:7622 ICA DIST:7412 ECA: [id number] VERT: 65 12 LEFT PSVEDV CCA PROX:7413 CCA DIST:6815 ICA PROX:7218 ICA MID:9826 ICA DIST:7321 ECA: [id number] VERT: 65 8 REASON FOR EXAM: Carotid artery stenosis/altered mental status. COMMENTS ON THE RIGHT: Doppler frequency analysis is consistent with 16 to 49 percent diameter reduction of the internal carotid artery. Minimal amount of plaque is seen. The common carotid artery is patent. The external carotid artery is patent. The vertebral artery has antegrade flow. COMMENTS ON THE LEFT: Doppler frequency analysis is consistent with 16 to 49 percent diameter reduction of the internal carotid artery. Minimal amount of plaque is seen. The common carotid artery is patent. The external carotid artery is patent. The vertebral artery has antegrade flow. IMPRESSION: Less than 50% diameter reduction in the internal carotid arteries bilaterally. Consider repeat carotid artery duplex in 12 months.
== END 2016-06-02 17:30 | disposition home or self-care (01) | DRG 70 ==
LOC: ED 16:28 → 3A 05-31 01:12
PROVIDERS: ADMIT Internal Medicine; ATTEND Hospitalist
DX: G45.4 Transient global amnesia (principal); G93.49 Other encephalopathy; E87.1 Hypo-osmolality and hyponatremia; E87.6 Hypokalemia; R31.9 Hematuria, unspecified
CPT/HCPCS: 36415; 70450; 70544; 70551; 71010; 80048; 80053; 80061; 80074; 80307; 80320; 81001; 82140; 82607; 82962; 83036; 83735; 84439; 84443; 84484; 85025; 87040; 90686; 90732; 93005; 93010; 93306; 93880; 95819; 96360; G0480; G8987-GO; G8988-GO; G8989-GO; J1650; J7030